=== PATIENT | female | born 1990 | race Caucasian/White ===

== ENCOUNTER 2018-02-18 22:30 | Observation (INO) | payer OTHER ==
[2018-02-19] MEDS ORDERED: Sodium Chloride 0.9% 1,000 ML IV SCH (01:00)
--- NOTE | 2018-02-19 01:10 | ED PDOC ---
Syncope/Near Syncope/Dizziness Time Seen by Provider: 02/19/18 00:11 Chief Complaint (Nursing): Syncope Chief Complaint (Provider): Dizziness History Per: Patient History/Exam Limitations: no limitations Additional History Per: Patient Additional Complaint(s): 27yo female, presents to ED with complaints of lightheadedness, generalized bodyaches and feeling tired for the past week. patient states she has a history of iron deficient anemia and has been compliant with her iron supplements. She also reports intermittent vague left upper quadrant pain with associated nausea and vomiting. She denies any fever, chills, sore throat, cough, diarrhea, urinary symptoms. She also denies any recent travels, sick contact, being sexually active or possible . She denies any chest pain or shortness of breath as well. Patient states she lost 5 lbs this past week because of decreased appetite. He has no other medical complaints. Past Medical History Reviewed: Historical Data, Nursing Documentation, Vital Signs Vital Signs: Last Vital Signs Temp 98.5 F 02/18/18 23:20 Pulse 100 H 02/18/18 23:20 Resp 16 02/18/18 23:20 BP 135/84 02/18/18 23:20 Pulse Ox 100 02/18/18 23:20 - Medical History PMH: Denies: HIV, Chronic Kidney Disease - Surgical History Surgical History: No Surg Hx - Family History Family History: States: No Known Family Hx - Immunization History Hx Tetanus Toxoid Vaccination: No Hx Influenza Vaccination: No Hx Pneumococcal Vaccination: No - Home Medications Home Medications: Ambulatory Orders Medication Instructions Recorded Blue-Green Algae [Spirulina] 1 tab PO DAILY 11/17/16 - Allergies Allergies/Adverse Reactions: Allergies Allergy/AdvReac Type Severity Reaction Status Date / Time No Known Allergies Allergy Verified 12/27/15 22:11 Review of Systems ROS Statement: Except As Marked, All Systems Reviewed And Found Negative Constitutional: Positive for: Malaise, Weight loss (5lbs last week). Negative for: Fever, Chills ENT: Negative for: Throat Pain Cardiovascular: Positive for: Light Headedness. Negative for: Chest Pain Respiratory: Negative for: Shortness of Breath Gastrointestinal: Positive for: Nausea, Vomiting, Abdominal Pain (left upper quadrant ) Physical Exam - Reviewed Nursing Documentation Reviewed: Yes Vital Signs Reviewed: Yes - Physical Exam Comments: GENERALIZED APPEARANCE:Patient is awake, alert, oriented x3 in no acute distress. SKIN: Warm, dry; (-) cyanosis. HEAD: (-) scalp swelling or tenderness. EYES: (-) conjunctival pallor. ENMT: Mucous membranes dry. NECK: (-) tenderness, (-) stiffness, (-) lymphadenopathy. CHEST AND RESPIRATORY: (-) rales, (-) rhonchi, (-) wheezes; breath sounds equal bilaterally. HEART AND CARDIOVASCULAR: (-) irregularity; (-) murmur, (-) gallop. ABDOMEN AND GI: Soft; (-) distention, (-) tenderness, (-) rebound, (-) guarding , (-) palpable masses, (-) flank tenderness. EXTREMITIES: (-) deformity; (-) edema. Distal pulses: present. NEURO AND PSYCH: Mental status as above. program advocate: (-) nystagmus; Pupils EOMI, (-) facial asymmetry; (-) dysarthria; tongue and uvula midline. Strength symmetric. Gait: normal. - Laboratory Results Result Diagrams: 02/19/18 01:35 02/19/18 01:35 - ECG O2 Sat by Pulse Oximetry: 100 (RA) Pulse Ox Interpretation: Normal Medical Decision Making Medical Decision Making: Impression: Dizziness Plan: -- EKG -- Labs -- IV Fluids -- Zofran 4mg IV -- Pepcid 20 mg IV Time: 227 Labs reviewed, hemoglobin level noted to be 5.5 Patient states that the last time she had blood work done was 1 month ago, her hgb was 7, her pmd advised that she sees a press supervisor and to consider transfusion, since then she admits that she has not f/u with her pmd or go forward and see the press supervisor referred to her. She further adds on further questioning, that she does gets heavy periods, lasting for 1.5 wks. Based on history, exam and diagnostic results plan will be for admission due to symptomatic anemia. Plan discussed with patient, who is agreeable. Patient to be admitted under Dr. Godwin, medicine corporate vp advertising & online. Orders for blood transfusion placed, patient provided consent for transfusion. Scribe Attestation: Documented by Alesha Mesa acting as a scribe for PENG Benton. Provider Attestation: All medical record entries made by the Scribe were at my direction and personally dictated by me. I have reviewed the chart and agree that the record accurately reflects my personal performance of the history, physical exam, medical decision making, and the department course for this patient. I have also personally directed, reviewed, and agree with the discharge instructions and disposition. 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
[2018-02-19 01:43] LABS: BASO # 0.1 K/uL (0.0-0.2); BASO % 0.8 % (0.0-2.0); EOS # 0.1 K/uL (0.0-0.7); LYMPH # 1.6 K/uL (1.0-4.3); LYMPH % 24.1 % (20.0-40.0); MEAN CELL VOLUME 60.6 fl (81.0-99.0); MEAN CORPUSCULAR HEMOGLOBIN 17.8 pg (27.0-31.0); MEAN CORPUSCULAR HGB CONC 29.4 g/dL (33.0-37.0); MEAN PLATELET VOLUME 7.9 fl (7.2-11.7); MONO # 0.4 K/uL (0.0-0.8); NEUT # 4.5 K/uL (1.8-7.0); NEUT % 68.1 % (50.0-75.0); NRBC % 0.1 % (0.0-0.0); RBC 3.11 Mil/uL (3.80-5.20); RED CELL DISTRIBUTION WIDTH 17.9 % (11.5-14.5); WHITE BLOOD COUNT 6.6 K/uL (4.8-10.8)
[2018-02-19 02:02] LABS: SQUAMOUS EPITHIAL 2 /hpf (0-5); URINE BACTERIA RARE (<OCC); URINE BILIRUBIN NEGATIVE (NEGATIVE); URINE BLOOD NEGATIVE (NEGATIVE); URINE CLARITY SLIGHTY-CLOUDY (Clear); URINE COLOR YELLOW (YELLOW); URINE GLUCOSE (UA) NEG (Normal); URINE LEUKOCYTE ESTERASE NEG Leu/uL (Negative); URINE PROTEIN NEGATIVE (NEGATIVE)
[2018-02-19 02:11] LABS: HEMOGLOBIN 5.5 g/dL (12.0-16.0)
[2018-02-19 02:23] LABS: BLOOD UREA NITROGEN 16 mg/dl (7-17); CALCIUM 9.1 mg/dL (8.4-10.2); GFR AFRICAN-AMERICAN > 60; GFR NON-AFRICAN AMERICAN > 60
[2018-02-19 02:24] LABS: ALB/GLOB RATIO 1.2 (1.0-2.1); ALT/SGPT 30 U/L (9-52); AST/SGOT 35 U/L (14-36); LIPASE 88 U/L (23-300)
--- NOTE | 2018-02-19 09:33 | CARD ---
APPROVED REPORT EKG Measurement Heart [id number] <Conclusion> Normal sinus rhythm Normal ECG
--- NOTE | 2018-02-19 13:48 | CP.PCM.HP ---
History of Present Illness - History of Present Illness History of Present Illness: Cc: Weakness, dizziness A 27 year old female with a pmhx of anemia who presented to ED with complaints of lightheadedness, generalized bodyaches and feeling tired for the past week. Patient states she has a history of iron deficient anemia and has been compliant with her iron supplements. Also states she has been experiencing vague intermittent left upper quadrant pain with associated nausea and vomiting. Denies any fever, chills, palpitations, shortness of breath, chest pain, sore throat, cough, diarrhea, constipation or urinary symptoms. Denies any recent travels, sick contact, being sexually active or possible . Patient states she has lost 5 lbs this past week because of decreased appetite. In the ED, the patient was found to be severely anemic with a hemoglobin of 5.5. The patient is to be transfused with 2 units of prbc and admitted for further monitoring. Present on Admission - Present on Admission Any Indicators Present on Admission: No Review of Systems - Review of Systems All systems: reviewed and no additional remarkable complaints except (as stated) - Constitutional Constitutional: As Per HPI, Weight Loss, Weakness. absent: Fever, Headache - Cardiovascular Cardiovascular: As Per HPI. absent: Chest Pain, Dyspnea, Palpitations, Syncope - Respiratory Respiratory: As Per HPI. absent: Cough, Dyspnea - Hematologic/Lymphatic Hematologic: As Per HPI Past Patient History - Past Medical History & Family History Past Medical History?: Yes Past Family History: Reviewed and not pertinent - Past Social History Smoking Status: Former Smoker - CARDIAC Hx Cardiac Disorders: No - PULMONARY Hx Respiratory Disorders: No - NEUROLOGICAL Hx Neurological Disorder: No - HEENT Hx HEENT Problems: No - RENAL Hx Chronic Kidney Disease: No - ENDOCRINE/METABOLIC Hx Endocrine Disorders: No - HEMATOLOGICAL/ONCOLOGICAL Hx Blood Disorders: Yes - INTEGUMENTARY Hx Dermatological Problems: No - MUSCULOSKELETAL/RHEUMATOLOGICAL Hx Musculoskeletal Disorders: No - GENITOURINARY/GYNECOLOGICAL Hx Genitourinary Disorders: No - PSYCHIATRIC Hx Psychophysiologic Disorder: No - SURGICAL HISTORY Hx Surgeries: No Other/Comment: lyme disease - ANESTHESIA Hx Anesthesia: No Hx Anesthesia Reactions: No Hx Malignant Hyperthermia: No Has any member of the family had a problem w/ anesthesia?: No Meds Allergies/Adverse Reactions: Allergies Allergy/AdvReac Type Severity Reaction Status Date / Time No Known Allergies Allergy Verified 02/20/16 22:11 Physical Exam - Constitutional Appears: Well, No Acute Distress - Head Exam Head Exam: ATRAUMATIC, NORMOCEPHALIC - Eye Exam Eye Exam: EOMI, Normal appearance, PERRL Pupil Exam: NORMAL ACCOMODATION - ENT Exam ENT Exam: Mucous Membranes Moist, Normal Exam - Neck Exam Neck exam: Positive for: Full Rom, Normal Inspection - Respiratory Exam Respiratory Exam: Clear to Auscultation Bilateral, NORMAL BREATHING PATTERN - Cardiovascular Exam Cardiovascular Exam: REGULAR RHYTHM, +S1, +S2 - GI/Abdominal Exam GI & Abdominal Exam: Normal Bowel Sounds, Soft - Rectal Exam Rectal Exam: Deferred - Extremities Exam Extremities exam: Positive for: full ROM, normal inspection - Back Exam Back exam: FULL ROM, NORMAL INSPECTION - Neurological Exam Neurological exam: Alert, CN II-XII Intact, Oriented x3, Reflexes Normal - Psychiatric Exam Psychiatric exam: Normal Affect, Normal Mood - Skin Skin Exam: Dry, Normal Color, Warm Results - Vital Signs Recent Vital Signs: Last Vital Signs Temp 97.9 F 02/19/18 13:00 Pulse 78 02/19/18 13:00 Resp 18 02/19/18 13:00 BP 99/60 L 02/19/18 13:00 Pulse Ox 100 02/19/18 13:00 - Labs Result Diagrams: 02/19/18 18:14 02/19/18 01:35 Labs: Laboratory Results - last 24 hr 02/19/18 02/19/18 02/19/18 01:35 01:35 01:35 WBC 6.6 RBC 3.11 L Hgb 5.5 L* D Hct 18.8 L MCV 60.6 L D MCH 17.8 L MCHC 29.4 L RDW 17.9 H Plt Count 426 H MPV 7.9 Neut % (Auto) 68.1 Lymph % (Auto) 24.1 [place] % (Auto) 6.0 Eos % (Auto) 1.0 Baso % (Auto) 0.8 Neut # (Auto) 4.5 Lymph # (Auto) 1.6 [place] # (Auto) 0.4 Eos # (Auto) 0.1 Baso # (Auto) 0.1 Sodium 143 Potassium 4.4 Chloride 105 Carbon Dioxide 21 L Anion Gap 21 H BUN 16 Creatinine 0.6 L Est GFR ( Amer) > 60 Est GFR (Non-Af Amer) > 60 Random Glucose 103 Calcium 9.1 Total Bilirubin 0.5 AST 35 ALT 30 Alkaline Phosphatase 63 Total Protein 7.3 Albumin 4.0 Globulin 3.3 Albumin/Globulin Ratio 1.2 Lipase 88 Urine Color Yellow Urine Clarity Slighty-cloudy Urine pH 6.0 Ur Specific [place] 1.017 Urine Protein Negative Urine Glucose (UA) Neg Urine Ketones Negative Urine Blood Negative Urine Nitrate Negative Urine Bilirubin Negative Urine Urobilinogen 2.0 H Ur Leukocyte Esterase Neg Urine RBC (Auto) 3 Urine Microscopic WBC 1 Ur Squamous Epith Cells 2 Urine Bacteria Rare Blood Type Blood Type Confirm Antibody Screen Crossmatch BBK History Checked 02/19/18 02/19/18 02:36 03:28 WBC RBC Hgb Hct MCV MCH MCHC RDW Plt Count MPV Neut % (Auto) Lymph % (Auto) [place] % (Auto) Eos % (Auto) Baso % (Auto) Neut # (Auto) Lymph # (Auto) [place] # (Auto) Eos # (Auto) Baso # (Auto) Sodium Potassium Chloride Carbon Dioxide Anion Gap BUN Creatinine Est GFR ( Amer) Est GFR (Non-Af Amer) Random Glucose Calcium Total Bilirubin AST ALT Alkaline Phosphatase Total Protein Albumin Globulin Albumin/Globulin Ratio Lipase Urine Color Urine Clarity Urine pH Ur Specific [place] Urine Protein Urine Glucose (UA) Urine Ketones Urine Blood Urine Nitrate Urine Bilirubin Urine Urobilinogen Ur Leukocyte Esterase Urine RBC (Auto) Urine Microscopic WBC Ur Squamous Epith Cells Urine Bacteria Blood Type O POSITIVE Blood Type Confirm O POSITIVE Antibody Screen Negative Crossmatch See Detail BBK History Checked No verified bt - EKG Data EKG comments: Normal sinus rhythm - Imaging and Cardiology US - Pelvis Additional comment: HISTORY: Menorrhagia, Severe Anemia COMPARISON: TECHNIQUE: FINDINGS: The uterus measures 7.4 x 3.4 x 3.6 centimeters. The endometrium measures 11 millimeters. The right ovary measures 3.5 x 3.3 centimeters contains a 2.4 centimeter cyst. The left ovary measures 3.3 x 2.9 centimeters. There is no free fluid in the pelvis. IMPRESSION: 2.4 centimeter right ovarian cyst. Assessment & Plan (1) Symptomatic anemia Assessment and Plan: Transfuse 2 units prbc Ferrous sulfate TID F/u anemia work up Am labs Status: Acute (2) Hypotension Assessment and Plan: Transfuse IVF monitor Status: Acute (3) Menorrhagia Assessment and Plan: Transfusion support 2.4cm right ovarian cyst on US report Assembly Room Supervisor consult monitor Status: Acute
[2018-02-19 16:49] LABS: TOTAL IRON BINDING CAPACITY 489 ug/dL (250-450)
--- NOTE | 2018-02-19 16:53 | US ---
PROCEDURE: HISTORY: Menorrhagia, Severe Anemia COMPARISON: TECHNIQUE: FINDINGS: The uterus measures 7.4 x 3.4 x 3.6 centimeters. The endometrium measures 11 millimeters. The right ovary measures 3.5 x 3.3 centimeters contains a 2.4 centimeter cyst. The left ovary measures 3.3 x 2.9 centimeters. There is no free fluid in the pelvis. IMPRESSION: 2.4 centimeter right ovarian cyst.
[2018-02-19 17:16] LABS: IRON < 10 ug/dL (37-170)
[2018-02-19 19:09] LABS: BASO # 0.1 K/uL (0.0-0.2); BASO % 0.9 % (0.0-2.0); EOS # 0.1 K/uL (0.0-0.7); EOS % 1.4 % (0.0-4.0); HEMOGLOBIN 7.8 g/dL (12.0-16.0); LYMPH % 32.6 % (20.0-40.0); MEAN CELL VOLUME 68.6 fl (81.0-99.0); MEAN CORPUSCULAR HGB CONC 30.6 g/dL (33.0-37.0); MEAN PLATELET VOLUME 8.2 fl (7.2-11.7); MONO # 0.4 K/uL (0.0-0.8); MONO % 6.3 % (0.0-10.0); NEUT # 3.6 K/uL (1.8-7.0); NEUT % 58.8 % (50.0-75.0); NRBC % 0.1 % (0.0-0.0); RBC 3.71 Mil/uL (3.80-5.20); RED CELL DISTRIBUTION WIDTH 27.3 % (11.5-14.5); WHITE BLOOD COUNT 6.2 K/uL (4.8-10.8)
[2018-02-20 06:46] LABS: HEMOGLOBIN 8.8 g/dL (12.0-16.0); MEAN CELL VOLUME 71.1 fl (81.0-99.0); MEAN CORPUSCULAR HEMOGLOBIN 22.3 pg (27.0-31.0); MEAN CORPUSCULAR HGB CONC 31.4 g/dL (33.0-37.0); RBC 3.96 Mil/uL (3.80-5.20); RED CELL DISTRIBUTION WIDTH 26.4 % (11.5-14.5); WHITE BLOOD COUNT 6.9 K/uL (4.8-10.8)
--- NOTE | 2018-02-20 08:09 | CP.PCM.CON ---
History of Present Illness - History of Present Illness History of Present Illness: OBGYN Consult Note HPI: 27 YO G0 female with hx of iron deficient anemia, was admitted to the hospital for near syncopal episode. Pt states that she was had her period in the first week this month, it lasted 7 days and since her period she has been feeling lightheaded, fatigue and experienced a near-syncopal episode which brought her to the hospital. Pt states that her periods have always been heavy but have been getting heavier, painful, and lasting about 7-10 days. Denies chest pain, dyspnea, n/v/d/c and fevers. GynHx: started menstruation at age 14, regular every month, lasting 7-10 days. Currently sexually active, denies STIs PMH: iron deficiency anemia SurgH: denies FH: denies SH: denies ETOH, smoking and illicit drug use. Lives a healthy lifestyle and goes to the gym daily Allergies: NKDA Meds: Iron Review of Systems - Constitutional Constitutional: Weakness. absent: Chills, Fatigue, Fever, Headache - Cardiovascular Cardiovascular: absent: Chest Pain, Dyspnea - Respiratory Respiratory: absent: Dyspnea - Gastrointestinal Gastrointestinal: absent: Abdominal Pain, Constipation, Diarrhea - Reproductive: Female Reproductive:Female: Heavy Menses, Dysmenorrhea - Neurological Neurological: Syncope (near syncopal episode ), Weakness. absent: Dizziness, Numbness, Headaches Past Patient History - Past Medical History & Family History Past Medical History?: Yes Past Family History: Reviewed and not pertinent - Past Social History Smoking Status: Former Smoker Alcohol: None Drugs: Denies - CARDIAC Hx Cardiac Disorders: No - PULMONARY Hx Respiratory Disorders: No - NEUROLOGICAL Hx Neurological Disorder: No - HEENT Hx HEENT Problems: No - RENAL Hx Chronic Kidney Disease: No - ENDOCRINE/METABOLIC Hx Endocrine Disorders: No - HEMATOLOGICAL/ONCOLOGICAL Hx Blood Disorders: Yes - INTEGUMENTARY Hx Dermatological Problems: No - MUSCULOSKELETAL/RHEUMATOLOGICAL Hx Musculoskeletal Disorders: No - GENITOURINARY/GYNECOLOGICAL Hx Genitourinary Disorders: No - PSYCHIATRIC Hx Psychophysiologic Disorder: No - SURGICAL HISTORY Hx Surgeries: No Other/Comment: lyme disease - ANESTHESIA Hx Anesthesia: No Hx Anesthesia Reactions: No Hx Malignant Hyperthermia: No Has any member of the family had a problem w/ anesthesia?: No Meds Allergies/Adverse Reactions: Allergies Allergy/AdvReac Type Severity Reaction Status Date / Time No Known Allergies Allergy Verified 12/27/15 22:11 - Medications Medications: Current Medications Famotidine (Pepcid) 20 mg IVP Q12 [facility] Last Admin: 02/19/18 22:02 Dose: 20 mg Ferrous Sulfate (Feosol) 325 mg PO TID [facility] Last Admin: 02/19/18 21:23 Dose: 325 mg Sodium Chloride (Sodium Chloride 0.9%) 1,000 mls @ 1,000 mls/hr IV .Q1H [facility] Last Admin: 02/19/18 01:29 Dose: 1,000 mls/hr Ondansetron HCl (Zofran Inj) 4 mg IVP Q6 PRN PRN Reason: Nausea/Vomiting Last Admin: 02/19/18 22:02 Dose: 4 mg Physical Exam - Constitutional Appears: No Acute Distress - Head Exam Head Exam: ATRAUMATIC, NORMOCEPHALIC - Eye Exam Eye Exam: EOMI, Normal appearance - ENT Exam ENT Exam: Mucous Membranes Moist - Respiratory Exam Respiratory Exam: Clear to Auscultation Bilateral, NORMAL BREATHING PATTERN. absent: Rales, Wheezes - Cardiovascular Exam Cardiovascular Exam: REGULAR RHYTHM, +S1, +S2 - GI/Abdominal Exam GI & Abdominal Exam: Normal Bowel Sounds, Soft. absent: Distended, Guarding, Tenderness - Extremities Exam Extremities exam: Positive for: full ROM, normal inspection. Negative for: calf tenderness, pedal edema - Back Exam Back exam: NORMAL INSPECTION. absent: CVA tenderness (L), CVA tenderness (R) - Neurological Exam Neurological exam: Alert, Oriented x3 - Psychiatric Exam Psychiatric exam: Normal Affect, Normal Mood - Skin Skin Exam: Dry, Intact, Normal Color, Warm Results - Vital Signs Recent Vital Signs: Last Vital Signs Temp 97.6 F 02/20/18 05:40 Pulse 76 02/20/18 05:40 Resp 18 02/20/18 05:40 BP 111/53 L 02/20/18 05:40 Pulse Ox 100 02/20/18 05:40 - Labs Result Diagrams: 02/20/18 05:20 02/19/18 01:35 Labs: Laboratory Results - last 24 hr 02/19/18 02/19/18 02/19/18 02:36 14:29 14:29 WBC RBC Hgb Hct MCV MCH MCHC RDW Plt Count MPV Neut % (Auto) Lymph % (Auto) [place] % (Auto) Eos % (Auto) Baso % (Auto) Neut # (Auto) Lymph # (Auto) [place] # (Auto) Eos # (Auto) Baso # (Auto) Iron < 10 L TIBC 489 H % Saturation Ferritin 4.0 L Vitamin B12 297 Blood Type O POSITIVE Antibody Screen Negative Crossmatch See Detail BBK History Checked No verified bt 02/19/18 02/20/18 18:14 05:20 WBC 6.2 6.9 RBC 3.71 L 3.96 Hgb 7.8 L D 8.8 L Hct 25.5 L 28.2 L MCV 68.6 L D 71.1 L D MCH 21.0 L 22.3 L MCHC 30.6 L 31.4 L RDW 27.3 H 26.4 H Plt Count 380 345 MPV 8.2 Neut % (Auto) 58.8 Lymph % (Auto) 32.6 [place] % (Auto) 6.3 Eos % (Auto) 1.4 Baso % (Auto) 0.9 Neut # (Auto) 3.6 Lymph # (Auto) 2.0 [place] # (Auto) 0.4 Eos # (Auto) 0.1 Baso # (Auto) 0.1 Iron TIBC % Saturation Ferritin Vitamin B12 Blood Type Antibody Screen Crossmatch BBK History Checked - Imaging and Cardiology US - Pelvis Additional comment: Pelvic U/S: FINDINGS: The uterus measures 7.4 x 3.4 x 3.6 centimeters. The endometrium measures 11 millimeters. The right ovary measures 3.5 x 3.3 centimeters contains a 2.4 centimeter cyst. The left ovary measures 3.3 x 2.9 centimeters. There is no free fluid in the pelvis. IMPRESSION: 2.4 centimeter right ovarian cyst. Assessment & Plan - Assessment and Plan (Free Text) Assessment: Assessment/Plan: 27 YO G0 female with hx of iron deficiency anemia is admitted for acute symptomatic anemia. S/p 3 unit of PRBC transfusion. OBGYN was consulted for menorrhagia. 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 Gomez
[2018-02-20 09:12] VITALS: BP 98/55; PULSE 67; RESP 20; TEMP 97.7; O2SAT 99
--- NOTE | 2018-02-20 12:51 | CP.PCM.PCO ---
Assessment & Plan - Assessment and Plan (Free Text) Assessment: patient cleared for d/c to home today by , - recommendations appreciated recs include monophasic OCP to regulate periods and decrease bleeding; for manager long term care control IUD may be considered - pt. wishes to decide on options after f/u appointment with obgyn outpatient f/u with in 1 week B12 inj x 1 then f/u outpatient
--- NOTE | 2018-02-20 16:51 | CP.PCM.DIS ---
Provider - Provider Date of Admission: 02/19/18 02:27 Attending physician: Saravanan Godwin MD Time Spent in preparation of Discharge (in minutes): 25 Diagnosis - Discharge Diagnosis (1) Symptomatic anemia Status: Acute (2) Hypotension Status: Acute (3) Menorrhagia Status: Acute Hospital Course - Lab Results Lab Results: Most Recent Lab Values WBC 6.9 K/uL (4.8-10.8) 02/20/18 05:20 RBC 3.96 Mil/uL (3.80-5.20) 02/20/18 05:20 Hgb 8.8 g/dL (12.0-16.0) L 02/20/18 05:20 Hct 28.2 % (34.0-47.0) L 02/20/18 05:20 MCV 71.1 fl (81.0-99.0) L D 02/20/18 05:20 MCH 22.3 pg (27.0-31.0) L 02/20/18 05:20 MCHC 31.4 g/dL (33.0-37.0) L 02/20/18 05:20 RDW 26.4 % (11.5-14.5) H 02/20/18 05:20 Plt Count 345 K/uL (130-400) 02/20/18 05:20 MPV 8.2 fl (7.2-11.7) 02/19/18 18:14 Neut % (Auto) 58.8 % (50.0-75.0) 02/19/18 18:14 Lymph % (Auto) 32.6 % (20.0-40.0) 02/19/18 18:14 [place] % (Auto) 6.3 % (0.0-10.0) 02/19/18 18:14 Eos % (Auto) 1.4 % (0.0-4.0) 02/19/18 18:14 Baso % (Auto) 0.9 % (0.0-2.0) 02/19/18 18:14 Neut # (Auto) 3.6 K/uL (1.8-7.0) 02/19/18 18:14 Lymph # (Auto) 2.0 K/uL (1.0-4.3) 02/19/18 18:14 [place] # (Auto) 0.4 K/uL (0.0-0.8) 02/19/18 18:14 Eos # (Auto) 0.1 K/uL (0.0-0.7) 02/19/18 18:14 Baso # (Auto) 0.1 K/uL (0.0-0.2) 02/19/18 18:14 Sodium 143 mmol/l (132-148) 02/19/18 01:35 Potassium 4.4 MMOL/L (3.6-5.0) 02/19/18 01:35 Chloride 105 mmol/L (98-107) 02/19/18 01:35 Carbon Dioxide 21 mmol/L (22-30) L 02/19/18 01:35 Anion Gap 21 (10-20) H 02/19/18 01:35 BUN 16 mg/dl (7-17) 02/19/18 01:35 Creatinine 0.6 mg/dl (0.7-1.2) L 02/19/18 01:35 Est GFR ( Amer) > 60 02/19/18 01:35 Est GFR (Non-Af Amer) > 60 02/19/18 01:35 Random Glucose 103 mg/dL (65-105) 02/19/18 01:35 Calcium 9.1 mg/dL (8.4-10.2) 02/19/18 01:35 Iron < 10 ug/dL (37-170) L 02/19/18 14:29 TIBC 489 ug/dL (250-450) H 02/19/18 14:29 % Saturation % (20-55) 02/19/18 14:29 Ferritin 4.0 ng/Ml (6.24-137.0) L 02/19/18 14:29 Total Bilirubin 0.5 mg/dl (0.2-1.3) 02/19/18 01:35 AST 35 U/L (14-36) 02/19/18 01:35 ALT 30 U/L (9-52) 02/19/18 01:35 Alkaline Phosphatase 63 U/L (38-126) 02/19/18 01:35 Total Protein 7.3 G/DL (6.3-8.2) 02/19/18 01:35 Albumin 4.0 g/dL (3.5-5.0) 02/19/18 01:35 Globulin 3.3 gm/dL (2.2-3.9) 02/19/18 01:35 Albumin/Globulin Ratio 1.2 (1.0-2.1) 02/19/18 01:35 Lipase 88 U/L (23-300) 02/19/18 01:35 Vitamin B12 297 pg/mL (239-931) 02/19/18 14:29 Urine Color Yellow (YELLOW) 02/19/18 01:35 Urine Clarity Slighty-cloudy (Clear) 02/19/18 01:35 Urine pH 6.0 (5.0-8.0) 02/19/18 01:35 Ur Specific [place] 1.017 (1.003-1.030) 02/19/18 01:35 Urine Protein Negative mg/dL (NEGATIVE) 02/19/18 01:35 Urine Glucose (UA) Neg mg/dL (Normal) 02/19/18 01:35 Urine Ketones Negative mg/dL (NEGATIVE) 02/19/18 01:35 Urine Blood Negative (NEGATIVE) 02/19/18 01:35 Urine Nitrate Negative (NEGATIVE) 02/19/18 01:35 Urine Bilirubin Negative (NEGATIVE) 02/19/18 01:35 Urine Urobilinogen 2.0 mg/dL (0.2-1.0) H 02/19/18 01:35 Ur Leukocyte Esterase Neg Roddy/uL (Negative) 02/19/18 01:35 Urine RBC (Auto) 3 /hpf (0-3) 02/19/18 01:35 Urine Microscopic WBC 1 /hpf (0-5) 02/19/18 01:35 Ur Squamous Epith Cells 2 /hpf (0-5) 02/19/18 01:35 Urine Bacteria Rare (<OCC) 02/19/18 01:35 Blood Type O POSITIVE 02/19/18 02:36 Blood Type Confirm O POSITIVE 02/19/18 03:28 Antibody Screen Negative 02/19/18 02:36 Crossmatch See Detail 02/19/18 02:36 BBK History Checked No verified bt 02/19/18 02:36 Discharge Exam - Head Exam Head Exam: ATRAUMATIC, NORMOCEPHALIC Discharge Plan - Discharge Medications Prescriptions: Ferrous Sulfate [Feosol] 325 mg PO TID #90 tab - Follow Up Plan Condition: STABLE Disposition: HOME/ ROUTINE Instructions: Anemia Caused by Low Iron, Adult (DC) Referrals: Nahomi Gomez MD [Staff Provider] - Saravanan Godwin MD [Staff Provider] -
[2018-02-20 16:57] LABS: FOLATE 11.9 ng/mL
== END 2018-02-20 14:06 | disposition home or self-care (01) ==
LOC: H.ER 22:30 → H.ERHOLD 02-19 02:27 → INTOOBSV 02-19 02:27 → H.MEDSURG1 02-19 03:36
PROVIDERS: ADMIT Internal Medicine; ATTEND Internal Medicine
DX: D50.9 Iron deficiency anemia, unspecified (principal); N92.0 Excessive and frequent menstruation with regular cycle; I95.9 Hypotension, unspecified; N83.201 Unspecified ovarian cyst, right side; R11.2 Nausea with vomiting, unspecified; R10.12 Left upper quadrant pain; Z87.891 Personal history of nicotine dependence
CPT/HCPCS: 36415; 36430; 76830; 76856; 80053; 81003; 82607; 82728; 82746; 83540; 83550; 83690; 85025; 85027; 86850; 86900; 86920; 93005; 96374; 96375; 99284; G0378; J2405; J3420; J7040; P9051